=== PATIENT | male | born 1995 | race Two or more races ===

== ENCOUNTER 2016-10-18 19:27 | Emergency (ER) | payer SELFPAY ==
[~2016-10-18 19:27] MED LIST: IBUPROFEN200 M3 PO; MIGRAINE PILL; NORCO 5/325 TAB1 TAB PO; PERCOCET 5-3251 EACH PO
[2016-10-18] MEDS ORDERED: NORCO 5-325 TA1 EACH PO (20:53)
== END 2016-10-18 21:00 ==
LOC: EDMED 19:27
DX: K08.89 Other specified disorders of teeth and supporting structures (principal)